=== PATIENT | female | born 1960 | race Caucasian/White ===

== ENCOUNTER 2019-10-25 05:41 | Day surgery (SDC) | payer BC ==
--- NOTE | 2019-10-17 03:51 | HP ---
HISTORY AND PHYSICAL: DATE OF SURGERY: 10/25/19 DATE OF OFFICE VISIT: 10/14/19 SURGEON: Anahy Pennington MD * (DICTATED BY NASIR OLIVARES) PROCEDURE: Right knee arthroscopy with partial meniscectomy, possible chondroplasty, and possible synovectomy. CHIEF COMPLAINT: Right knee pain. HISTORY OF PRESENT ILLNESS: Ms. Morin is a 59-year-old female with complaints of right knee pain. An MRI confirms meniscus tear and she has elected to proceed with a right knee arthroscopy. PAST MEDICAL HISTORY: Sleep apnea. PAST SURGICAL HISTORY: 1. . 2. D and C. 3. Ganglion cyst removal. 4. Cataract removal. CURRENT MEDICATIONS: 1. Xyzal 5 mg daily. 2. Fish oil daily. 3. Vitamin D. 4. Advil as needed. 5. Flexiplex daily. ALLERGIES: SELDANE, DARVON, ADHESIVE, and A GLAUCOMA PILL. FAMILY HISTORY: Diabetes, cancer, and stroke. SOCIAL HISTORY: She is a 59-year-old female. She lives with her . She does not smoke or use drugs. REVIEW OF SYSTEMS: A complete 14-point review of systems was reviewed with the patient, all negative or noncontributory. She denies history of DVT, PE, hepatitis, HIV, or anesthesia problems. PHYSICAL EXAMINATION GENERAL: She is well developed, well nourished, in no acute distress. VITAL SIGNS: She stands 62 inches tall, weighs 162 pounds. Her blood pressure is 130/82, her heart rate is 74. HEENT: Normocephalic, atraumatic. NECK: Supple. No palpable lymph nodes. PULMONARY: The lungs are clear to auscultation bilaterally. CARDIO: Regular rate and rhythm. Strong S1, S2. ABDOMEN: Soft, nontender, nondistended. MUSCULOSKELETAL: Right lower extremity: The skin is intact. There are no open wounds or abrasions. There is a moderate effusion, tenderness along the medial joint line. Positive Apley's and Gerald's. Range of motion is 5 to 125 degrees of flexion. She is able to dorsiflex and plantar flex. She has 2+ dorsalis pedis pulse and intact sensation. NEUROLOGICAL: He is alert and oriented x3. ASSESSMENT AND PLAN: Ms. Morin is a 59-year-old female with complaint of right knee pain and MRI confirms a medial meniscus tear. She has elected to proceed with a right knee arthroscopy with partial meniscectomy, possible chondroplasty, possible synovectomy, and possible plica excision. The surgery is scheduled for 10/25/[address] Pennington discussed the risks and benefits of the surgery at today's visit and all of her questions were answered. She will follow up with Dr. Pennington 2 weeks after the surgery. NASIR OLIVARES [id number]/[facility] #: [id number]
[~2019-10-25 05:41] MED LIST: Buffered Lidocaine 1% SYRIN* 1 ML/SYRINGE INTRADERM ONE
[2019-10-25] MEDS ORDERED: Acetaminophen TAB* 325 MG ONE (05:54)
[2019-10-25] MEDS ORDERED: celeCOXIB CAP* 200 MG ONE (05:54)
[2019-10-25] MEDS ORDERED: ceFAZolin 2 GM in NS PREMIX(*) 2 GM/100 ML BAG IVPB ONE (05:55)
[2019-10-25] MEDS ORDERED: Buffered Lidocaine 1% SYRIN* 1 ML/SYRINGE INTRADERM ONE (05:55)
[2019-10-25] MEDS ORDERED: Acetaminophen TAB* 325 MG PO ONE (06:00)
[2019-10-25] MEDS ORDERED: celeCOXIB CAP* 200 MG PO ONE (06:00)
[2019-10-25] MEDS ORDERED: Lactated Ringers 1000 ML Bag* 1,000 ML IV SCH (06:00)
[2019-10-25] MEDS ORDERED: EPINEPHRINE 1 MG/ML 1 ML VIAL ONE (06:55)
[2019-10-25] MEDS ORDERED: ROPIVACAINE 5 MG/ML 30 ML BTL (0.5%) ONE (06:55)
[2019-10-25] MEDS ORDERED: methylPREDNISolone ACETATE 80* 80 MG/ML 1 ML VIAL ONE (06:55)
[2019-10-25] MEDS ORDERED: Midazolam* 1 MG/ML 2 ML VIAL (2 MG) ONE (07:08)
[2019-10-25] MEDS ORDERED: fentaNYL* 50 MCG/ML 2 ML VIAL (100 MCG VIAL) ONE (07:08)
[2019-10-25] MEDS ORDERED: Propofol* 10 MG/ML 20 ML BTL ONE (07:10)
[2019-10-25] MEDS ORDERED: Lidocaine 2% PF * 5 ML VIAL ONE (07:10)
[2019-10-25] MEDS ORDERED: Dexamethasone IV* 4 MG/ML 1 ML (4 MG) ONE (07:44)
[2019-10-25] MEDS ORDERED: Ondansetron INJ* 2 MG/ML VIAL ONE (07:44)
[2019-10-25] MEDS ORDERED: Naloxone* 0.4 MG/ML 1 ML VIAL IV PRN (07:57)
[2019-10-25] MEDS ORDERED: HYDROmorphone INJ1* 1 MG/ML SYRINGE IV PRN (07:57)
[2019-10-25] MEDS ORDERED: PROCHLORPERAZINE INJ 5 MG/ML 2 ML VIAL IV PRN (07:57)
[2019-10-25] MEDS ORDERED: HYDROmorphone INJ1* 1 MG/ML SYRINGE ONE (07:57)
[2019-10-25] MEDS ORDERED: oxyCODONE TAB* 5 MG TAB ONE ×2 (08:38→09:16)
[2019-10-25] MEDS: oxyCODONE TAB* 5 MG TAB PO PRN ×2 (08:42→09:17)
[2019-10-25 10:35] VITALS: BP 131/76
--- NOTE | 2019-10-26 06:43 | OP ---
OPERATIVE REPORT: DATE OF OPERATION: 10/25/19 DATE OF : 58. ATTENDING SURGEON: Anahy Pennington MD CLINICAL PHARMACOLOGIST: NASIR [place] Ms. did help throughout the procedure with preparation of the leg, wound retraction and aristides pulation of the knee and wound closure. ANESTHESIOLOGIST: Dr. Navarro. ANESTHESIA: General. PRE-OP DIAGNOSES: Right knee medial meniscal tear, mild to moderate arthritic changes. POST-OP DIAGNOSES: Right knee medial meniscal tear, lateral meniscal tear, severe degenerative osteo arthritis. OPERATIVE PROCEDURES: Right knee arthroscopy with partial medial meniscectomy and partial lateral me niscectomy. BRIEF HISTORY/INDICATIONS: Ms. Morin presented with acute onset of mechanical symptoms and incr ease in her right knee pain. MRI confirmed a medial meniscal tear. She had failed conservative sinan tment and we discussed the possibility of arthroscopy with partial meniscectomy. Informed consent wa s obtained from the patient. She understood the risks of surgery included, but were not limited to b leeding, infection, damage to nearby structures, continued pain, need for further surgery, retear of the meniscus, progression of arthritis, stroke, heart attack, blood clot and . She wished to pr oceed. INTRAOPERATIVE FINDINGS: Intraoperatively, the patient had a parrot-beak type tear along in the post erior one-third of medial meniscus in the red-white zone. She had a radial type tear in the posterio r horn of the lateral meniscus. This is in the white-red zone. The patient had grade 3 and 4 Outerb ridge cartilage changes in both the medial and patellofemoral compartments with exposed subchondral b one and complete loss of cartilage. COMPLICATIONS: None. ESTIMATED BLOOD LOSS: Less than 25 cc. SPECIMENS: None. DESCRIPTION OF PROCEDURE: Ms. Morin was identified in the preanesthesia unit. Her right lower e xtremity was marked as the correct operative side. Informed consent was signed and placed in the [facility] rt. The patient was taken to the operating room and placed under anesthesia without complication. R ight lower extremity was prepped and draped in the usual sterile fashion. Preop time-out was made to correctly identify the patient's side and site. Appropriate perioperative antibiotics were given wi thin 1 hour of incision. A standard anterolateral portal incision of 0.5 cm was made with a 15 blade and carried down to the c apsule. Trocar was introduced. As soon as the light and water sources were turned on, there was imm ediate visualization of the suprapatellar pouch. A tour of the knee joint was performed. Suprapatellar pouch had no obvious abnormalities. Patellofemoral compartment showed exposed subchond ral bone with extreme loss of cartilage. These were 3 and 4 Outerbridge cartilage changes. The medi al gutter showed no loose body or plica. Medial compartment showed a grade 3 and 4 Outerbridge cartil age changes with large area of exposed subchondral bone. There was a parrot-beak type tear in the po sterior medial meniscus. This tear was displaced anteriorly and some joint space. ACL and PCL appea red to be intact. The knee was placed in a figure-of-4 position. The lateral compartment was evaluated. There were mi nimal degenerative changes. There was a radial tear in the posterior horn of the lateral meniscus. Lateral gutter had no abnormality or loose body. Under direct visualization, a medial portal incisio n was made. Probe was introduced. A second tour of the knee joint was performed. No additional findings were no fredi. Straight biter was introduced and the torn medial meniscus was carefully excised. Shaver and r adiofrequency ablation wand were used to further smooth the edge of the meniscus. Partial meniscecto my was carried out mainly in the red-white zone. Further probing of the medial meniscus showed no ad ditional tears. The knee was then placed in a figure-of-4 position. Shaver and radiofrequency ablation wand were use d to perform partial lateral meniscectomy. The tear excised in the red-white zone of the posterior h orn of the lateral meniscus. The knee was copiously irrigated with sterile saline. All instruments were removed. The incisions w ere closed using 3-0 nylon suture. Sterile Xeroform, 4x4s and Webril were used to cover the incision . Marcio wrap and cold pack were placed over this. The patient's anesthesia was reversed without diffi culty. She was taken to the PACU in stable condition. Intended weightbearing will be weightbearing as tolerated. Intended DVT prophylaxis will be aspirin. She will follow up in 2 weeks' time for a fatoumata vega. [id number]/[facility] #: [id number]
== END 2019-10-25 10:40 | disposition home or self-care (01) ==
LOC: OR 05:41
PROVIDERS: ATTEND Orthopaedic Surgery Adult Reconstructive Orthopaedic Surgery
DX: S83.241A Other tear of medial meniscus, current injury, right knee, initial encounter (principal); S83.281A Other tear of lateral meniscus, current injury, right knee, initial encounter; X58.XXXA Exposure to other specified factors, initial encounter; Y92.9 Unspecified place or not applicable; G47.33 Obstructive sleep apnea (adult) (pediatric); K21.9 Gastro-esophageal reflux disease without esophagitis
CPT/HCPCS: A9270-GY; J0690; J1040; J1100; J1170; J2250; J2405; J2704; J2795; J3010

== ENCOUNTER 2020-09-04 09:05 | Observation (INO) ==
[~2020-09-04 09:05] MED LIST changes: +Buffered Lidocaine 1% SYRIN 1 ml INTRADERM ONE; -Buffered Lidocaine 1% SYRIN* 1 ML/SYRINGE INTRADERM ONE; +Bupivacaine 0.5% SDV PF 30ML VIAL ONE; +Famotidine IV 10 MG/ML 2 ml VIAL (20 mg) IV ONE; +Lactated Ringers 1000 ml BAG 1,000 ML IV SCH; +Midazolam 5 mg/5 ml VIAL 1 mg/ml 5 ml VIAL (5 mg) ONE; +Sodium Citrate/Citric Acid LIQ 15 ML UDC PO ONE
[2020-09-04] MEDS ORDERED: Phenylephrine 40 mcg/mL 10mL (400mcg) SYRINGE ONE (09:06)
[2020-09-04] MEDS ORDERED: Sodium Citrate/Citric Acid LIQ 15 ML UDC ONE (09:16)
[2020-09-04] MEDS ORDERED: Buffered Lidocaine 1% SYRIN 1 ml INTRADERM ONE (09:16)
[2020-09-04] MEDS ORDERED: ceFAZolin 2 GM PREMIX 2 GM/50 ML BAG ONE (09:16)
[2020-09-04] MEDS ORDERED: Famotidine IV 10 MG/ML 2 ml VIAL (20 mg) ONE (09:16)
[2020-09-04] MEDS ORDERED: ROPIVACAINE 5 MG/ML 30 ML BTL (0.5%) ONE ×2 (10:04→10:34)
[2020-09-04] MEDS ORDERED: Dexamethasone IV 4 MG/ML VIAL 1 ml VIAL ONE (10:33)
[2020-09-04] MEDS ORDERED: Lidocaine 1% MPF 5 ML VIAL ONE (10:34)
[2020-09-04] MEDS ORDERED: Lactulose 30 ml UDC PO PRN (12:39)
[2020-09-04] MEDS ORDERED: diPHENhydraMINE 25 mg TAB PO PRN (12:39)
[2020-09-04] MEDS ORDERED: Ondansetron ODT 4 mg TAB 4 MG TAB PO PRN (12:39)
[2020-09-04] MEDS ORDERED: Magnesium Hydroxide LIQ 30 ML UDC PO PRN (12:39)
[2020-09-04] MEDS ORDERED: diPHENhydraMINE IV 50 MG/ML 1 ml VIAL (BENADRYL) IV PRN (12:39)
[2020-09-04] MEDS ORDERED: Ondansetron 4 mg VIAL 2 MG/ML 2 ml VIAL IV PRN ×2 (12:39→13:12)
[2020-09-04] MEDS ORDERED: Morphine 2 MG/ML SYRINGE IV PRN (12:39)
[2020-09-04] MEDS ORDERED: Naloxone 0.4 mg VIAL 0.4 mg/ml 1 ml VIAL IV PRN (13:12)
[2020-09-04] MEDS ORDERED: HYDROmorphone 1 MG/1 ML SYRINGE IV PRN (13:12)
[2020-09-04] MEDS ORDERED: fentaNYL 100 mcg/2 ml 50 MCG/ML VIAL IV PRN (13:12)
[2020-09-04] MEDS: Lactated Ringers 1000 ml BAG 1,000 ML IV SCH (15:35)
[2020-09-04] MEDS: Clindamycin 600 MG/D5W BAG 600 MG/50 ML BAG IV SCH (20:34)
[2020-09-04] MEDS: Magnesium Hydroxide LIQ 30 ML UDC PO SCH (22:38)
[2020-09-05] MEDS: Lactated Ringers 1000 ml BAG 1,000 ML IV SCH (02:01)
[2020-09-05] MEDS: Clindamycin 600 MG/D5W BAG 600 MG/50 ML BAG IV SCH (03:47)
[2020-09-05 06:52] LABS: Hematocrit 32 % (35-47); Hemoglobin 10.8 g/dL (12.0-16.0); Mean Platelet Volume 7.8 fL (7.4-10.4); Platelet Count 231 10^3/uL (150-450)
[2020-09-05 07:23] LABS: BUN/Creatinine Ratio 18.2 (8-20); Calcium 8.7 mg/dL (8.6-10.3); EGFR African American 92.2 (>60); EGFR Non-African American 76.2 (>60)
[2020-09-05 07:26] VITALS: BP 99/54
[2020-09-05] MEDS: Magnesium Hydroxide LIQ 30 ML UDC PO SCH (08:14)
[2020-09-05] MEDS ORDERED: Vitamin THERAPEUTIC TAB PO SCH (09:00)
== END 2020-09-05 11:03 | disposition home or self-care (01) ==
LOC: AA 09:05 → INTOOBSV 09:05 → SSU 12:39
PROVIDERS: ADMIT Orthopaedic Surgery Adult Reconstructive Orthopaedic Surgery; ATTEND Orthopaedic Surgery Adult Reconstructive Orthopaedic Surgery